=== PATIENT | male | born 1980 | race Asian ===

== ENCOUNTER → 2020-03-03 | Outpatient (CLI) | payer BC ==
[~2020-03-03] MED LIST: ABILIFY 10MG TA10 MG PO; ATARAX 25MG25 MG/TAB PO; COLACE 100100 MG/CAP PO; INDERAL 20MG20 MG PO; LEXAPRO20 MG PO; MINIPRESS 5M5 MG/CAP PO; PRIL40 PO; SYNTHROID0.075 MG/T PO
== END ==
LOC: COL.RAD 06:29
DX: R10.13 Epigastric pain (principal)
CPT/HCPCS: A9537; J2805